=== PATIENT | male | born 2000 | race Caucasian/White ===

== ENCOUNTER 2021-12-30 20:22 | Emergency (ER) ==
[2021-12-31] MEDS ORDERED: BACITRACIN OINTMENT 30GM TUBE TOP ONE (02:00)
== END 2021-12-31 02:21 | disposition home or self-care (01) ==
LOC: M ED 20:22
DX: S61.212A Laceration without foreign body of right middle finger without damage to nail, initial encounter (principal); X58.XXXA Exposure to other specified factors, initial encounter

== ENCOUNTER → 2022-02-24 | Outpatient (CLI) | payer OTHER | LOC: M CARPUL 12:23 | PROVIDERS: ATTEND Internal Medicine Cardiovascular Disease | DX: R94.31 Abnormal electrocardiogram [ECG] [EKG] (principal) ==